=== PATIENT | male | born 1945 | race Caucasian/White ===

== ENCOUNTER → 2019-11-26 09:12 | Outpatient (CLI) | payer OTHER ==
[~2019-11-26 09:12] MED LIST: BABY ASPIRIN81 MG PO; CARDIZEM CD120 MG PO; CO Q-1030 MG; FORMULA E400 UNIT PO; GLUCOSAMINE HC500 MG PO; MAG-OXIDE400 MG PO; MOBIC7.5 MG PO; OMEGA-3100 MG PO; PRAVACHOL40 MG PO; VITAMIN D3400 UNI1 PO; ZINC SULFATE 2220 MG PO
== END | disposition home or self-care (01) ==
LOC: D.HCCECHO 09:12
PROVIDERS: ATTEND Internal Medicine Cardiovascular Disease
DX: I10 Essential (primary) hypertension (principal)